=== PATIENT | male | born 1940 | race Caucasian/White ===

== ENCOUNTER 2016-06-24 13:09 | Day surgery (SDC) | payer MEDICARE ==
[~2016-06-24 13:09] MED LIST: APIX5TAB PO; CALC500T19 PO; CARD120T4 PO; FINA5TAB77 PO; MULT-65 PO; PACE200T4 PO; PRAV20 PO; PROPOFOL 200 MG/20 ML AMP IV ONE; TAMS0.4C67 PO
[2016-06-24] MEDS ORDERED: LACTATED RINGER'S 1000 ML IV SCH (13:45)
[2016-06-24] MEDS ORDERED: INSULIN HUMAN REGULAR 1,000 UNITS/10 ML VIAL SQ PRN (13:45)
[2016-06-24] MEDS ORDERED: SODIUM CHLORID 0.9% 500 ML IV SCH (13:45)
[2016-06-24] MEDS ORDERED: METOPROLOL TARTRATE 25 MG TAB PO PRN (13:45)
[2016-06-24] MEDS ORDERED: APIX5TAB PO (14:28)
[2016-06-24] MEDS ORDERED: ACET1CAP18 PO (14:28)
[2016-06-24] MEDS ORDERED: AMIO200T PO (14:28)
[2016-06-24] MEDS ORDERED: PRAV20TA2 PO (14:28)
[2016-06-24] MEDS ORDERED: MULT1TAB84 PO (14:28)
[2016-06-24] MEDS ORDERED: METO25TA3 PO (14:28)
[2016-06-24] MEDS ORDERED: PROS5TAB PO (14:28)
[2016-06-24] MEDS ORDERED: TAMS0.4C4 PO (14:28)
[2016-06-24] MEDS ORDERED: AMBI5TAB PO (14:28)
--- NOTE | 2016-06-24 14:39 | PD.CARD ---
Cardiology Procedure Note Procedure Name: DC cardioversion Procedure Date: Jun 24, 2016 Procedure Note: Indication: A fib/flutter Procedure: 50 J biphasic resulted in SR Dx: successful cardioversion of a fib/flutter Plan: DC home. Continue anticoagulation. F/u w me as outpatient. Perfecto Lucio MD Jun 24, 2016 14:39
--- NOTE | 2016-06-25 15:39 | EKG ---
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
== END 2016-06-24 15:40 | disposition home or self-care (01) ==
LOC: HDOC 13:09 → HDIC 13:09 → HDOC 15:40
PROVIDERS: ATTEND Internal Medicine Interventional Cardiology
DX: I48.0 Paroxysmal atrial fibrillation (principal); I48.92 Unspecified atrial flutter; I34.0 Nonrheumatic mitral (valve) insufficiency; I36.1 Nonrheumatic tricuspid (valve) insufficiency; I27.0 Primary pulmonary hypertension; G47.9 Sleep disorder, unspecified; R94.31 Abnormal electrocardiogram [ECG] [EKG]; R53.83 Other fatigue; Z79.01 Long term (current) use of anticoagulants
CPT/HCPCS: 92960; 93005

== ENCOUNTER 2017-10-07 12:24 | Day surgery (SDC) | payer MEDICARE ==
[~2017-10-07 12:24] MED LIST changes: +ACET1CAP18 PO; +AMBI5TAB PO; +AMIO200T PO; -CALC500T19 PO; -CARD120T4 PO; -FINA5TAB77 PO; +METO25TA3 PO; -MULT-65 PO; +MULT1TAB84 PO; -PACE200T4 PO; -PRAV20 PO; +PRAV20TA2 PO; -PROPOFOL 200 MG/20 ML AMP IV ONE; +PROS5TAB PO; +TAMS0.4C4 PO; -TAMS0.4C67 PO
[2017-10-07] MEDS ORDERED: CALC500T37 PO (13:19)
[2017-10-07] MEDS ORDERED: INSULIN HUMAN REGULAR 1,000 UNITS/10 ML VIAL SQ PRN (13:30)
[2017-10-07] MEDS ORDERED: METOPROLOL TARTRATE 25 MG TAB PO PRN (13:30)
[2017-10-07] MEDS ORDERED: LACTATED RINGER'S 1000 ML IV PRN (13:30)
[2017-10-07] MEDS ORDERED: POVIDONE IODINE 5% (ANTISEPSIS KIT) 4 APPLICATIONS EACH NARE PRN (13:30)
[2017-10-07] MEDS ORDERED: SODIUM CHLORID 0.9% 500 ML IV PRN (13:30)
[2017-10-07] MEDS ORDERED: CHLORHEXIDINE GLUCONATE 2 % 1 PACK (2 CLOTHS) TOPICAL PRN (13:30)
--- NOTE | 2017-10-07 15:07 | MR ---
cc: Perfecto Lucio MD DATE: 10/07/2017 INDICATION: Atrial flutter with rapid ventricular response, recent ablation for atrial fibrillation. PROCEDURE PERFORMED: Direct current cardioversion. DESCRIPTION OF PROCEDURE: After the patient was sedated by Anesthesia, 200 joule biphasic shock was delivered and converted the patient to sinus rhythm. The patient remained stable and was discharged home in stable condition. DIAGNOSIS: Successful cardioversion of atrial fibrillation. DISPOSITION: Mr. Simon will continue his current medical program including anticoagulation. I will see him back for followup in our office after discharge. Perfecto Lucio MD OQ/TL , 02:37 PM , 03:06 PM MTDD
--- NOTE | 2017-10-08 09:29 | EKG ---
Date Performed: 10/07/2017 Time Performed: 14:49:56 PTAGE: 77 years EKG: Sinus rhythm . Leftward axis Incomplete RBBB Poor R wave progression - probable normal variant Inferior ST-T hart es are nonspecific Low QRS voltages in precordial leads Borderline ECG PREVIOUS TRACING : 10/07/2017 12.41 DOCTOR: Yayo Healy Interpretating Date/Time 10/08/2017 09:27:48
--- NOTE | 2017-10-08 09:36 | EKG ---
Date Performed: 10/07/2017 Time Performed: 12:41:44 PTAGE: 77 years EKG: POSSIBLE ATRIAL FLUTTER WITH 2:1 CONDUCTION Left axis deviation RBBB with left anterior fas cicular block Abnormal ECG PREVIOUS TRACING : 06/24/2016 13.58 DOCTOR: Yayo Healy Interpretating Date/Time 10/08/2017 09:34:44
== END 2017-10-07 15:25 | disposition home or self-care (01) ==
LOC: HDOC 12:24 → HDIC 12:25 → HDOC 15:25
PROVIDERS: ATTEND Internal Medicine Interventional Cardiology
DX: I48.92 Unspecified atrial flutter (principal); I48.0 Paroxysmal atrial fibrillation; I34.0 Nonrheumatic mitral (valve) insufficiency; I36.1 Nonrheumatic tricuspid (valve) insufficiency; I27.0 Primary pulmonary hypertension; R53.83 Other fatigue; G47.9 Sleep disorder, unspecified
CPT/HCPCS: 92960; 93005